=== PATIENT | female | born 1995 | race Caucasian/White ===

== ENCOUNTER 2018-11-04 14:57 | Emergency (ER) | payer OTHER ==
[2018-11-04 15:09] VITALS: BP 139/94
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
--- NOTE | 2018-11-04 16:06 | XRAY Report ---
Reason: 4th finger injury at PIP, shield abd Procedure Date: 11/04/2018 Accession Number: [id number] / [id number] Procedure: XR - Finger(s) LT CPT Code: FULL RESULT: EXAM: LEFT FOURTH DIGIT RADIOGRAPHY EXAM DATE: 11/04/2018 03:28 PM. CLINICAL HISTORY: 4th finger injury at PIP, shield abd. COMPARISON: None. TECHNIQUE: 3 views. FINDINGS: Bones: Possible fractured dorsal aspect middle phalanx base at the PIP joint Joints: Normal. No subluxations. Soft Tissues: Soft tissue swelling. IMPRESSION: Possible fracture dorsal base of middle phalanx seen on lateral view [facility]
[2018-11-04 16:11] LABS: HCG UR QUAL NEGATIVE
== END 2018-11-04 16:55 | disposition home or self-care (01) ==
LOC: ED 14:57
DX: S62.655A Nondisplaced fracture of middle phalanx of left ring finger, initial encounter for closed fracture (principal); W22.09XA Striking against other stationary object, initial encounter; Y92.009 Unspecified place in unspecified non-institutional (private) residence as the place of occurrence of the external cause; R03.0 Elevated blood-pressure reading, without diagnosis of hypertension
CPT/HCPCS: 73140; 81025; 99283

== ENCOUNTER 2019-01-11 10:50 | Emergency (ER) | payer OTHER ==
[2019-01-11 10:54] VITALS: BP 135/89
[2019-01-11] MEDS ORDERED: ACETAMINOPHEN 325 MG TABLET PO STA (11:10)
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
== END 2019-01-11 11:17 | disposition home or self-care (01) ==
LOC: ED 10:50
DX: S09.90XA Unspecified injury of head, initial encounter (principal); Y04.2XXA Assault by strike against or bumped into by another person, initial encounter
CPT/HCPCS: 99283; A9270

== ENCOUNTER 2019-03-11 17:32 | Emergency (ER) | payer SELFPAY ==
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
[2019-03-11 18:51] VITALS: BP 115/80
== END 2019-03-11 18:47 | disposition home or self-care (01) ==
LOC: ED 17:32
DX: S06.0X0A Concussion without loss of consciousness, initial encounter (principal); W21.01XA Struck by football, initial encounter
CPT/HCPCS: 99283

== ENCOUNTER 2019-05-09 18:53 | Emergency (ER) | payer MEDICAID, OTHER ==
[2019-05-09] MEDS ORDERED: MELOXICAM 7.5 MG TABLET PO STA (20:52)
[2019-05-09] MEDS ORDERED: CYCLOBENZAPRINE 10 MG TABLET PO STA (20:52)
--- NOTE | 2019-05-09 20:55 | ED Physician Documentation ---
History of Present Illness - Stated complaint Stated Complaint: NECK PX/FEVER - Chief complaint Chief Complaint: Back Pain - History obtained from History obtained from: Patient, Family - History of Present Illness Timing: How many days ago (3) Pain level max: 6 Pain level now: 4 - Additonal information Additional information: states woke up with pain to the R neck 3 days ago, stretched gently at the time and felt better the next day. Today worsened again. Worse with movement and better with rest. Saw her doctor today who was concerned about potential meningitis and sent the patient here for evaluation. T-max of 99.2. Review of Systems Constitutional: denies: Fever, Chills Ears: denies: Ear pain GI: denies: Nausea, Vomiting, Diarrhea : denies: Dysuria, Frequency, Hesitancy, Now EGA Skin: denies: Rash Musculoskeletal: denies: Back pain Neurologic: denies: Focal weakness, Numbness PD PAST MEDICAL HISTORY - Past Medical History Past Medical History: Yes Psych: Panic attacks - Past Surgical History Past Surgical History: No - Present Medications Home Medications: Ambulatory Orders Medication Instructions Recorded Confirmed Cyclobenzaprine [Flexeril] 10 mg PO TID PRN #20 tablet 05/09/19 Meloxicam [Mobic] 15 mg PO DAILY PRN #20 tablet 05/09/19 - Allergies Allergies/Adverse Reactions: Allergies Allergy/AdvReac Type Severity Reaction Status Date / Time amoxicillin Allergy Rash Verified 05/09/19 19:10 - Social History Does the pt smoke?: No Smoking Status: Former smoker Does the pt drink ETOH?: Yes Does the pt have substance abuse?: No Substance Use and Type: Marijuana - Immunizations Immunizations are current?: Yes PD ED PE NORMAL - Vitals Vital signs reviewed: Yes - General General: Alert and oriented X 3, No acute distress - HEENT HEENT: Atraumatic, PERRL, Ears normal, Moist mucous membranes, Pharynx benign - Neck Neck: Supple, no meningeal sign, No bony TTP, Other (Paraspinal spasm bilateral paracervical. Negative Kernig and Brudzinski signs. Has pain with rotation of the head. Able to fully extend and flex the head without pain.) - Cardiac Cardiac: RRR, Strong equal pulses - Respiratory Respiratory: No respiratory distress, Clear bilaterally - Abdomen Abdomen: Soft, Non tender, Non distended - Back Back: No CVA TTP, No spinal TTP - Derm Derm: Warm and dry - Neuro Neuro: Alert and oriented X 3 - Psych Psych: Normal mood, Normal affect Results - Vitals Vitals: Oxygen O2 Source Room air PD MEDICAL DECISION MAKING - ED course Complexity details: considered differential, d/w patient, d/w family ED course: 24-year-old female that appears to be in neck muscle spasm. Likely secondary to how she slept. Encourage gentle stretching. Will place on medications for home. There is no evidence of meningitis at this time. She will follow-up with her PCP for further care. Patient counseled regarding signs and symptoms for which I believe and urgent re-evaluation would be necessary. Patient with good understanding of and agreement to plan and is comfortable going home at this time Goc Departure - Departure Disposition: 01 Home, Self Care Clinical Impression: Neck muscle spasm Condition: Good Instructions: ED Spasm Neck No Injury Follow-Up: Radha Cosme MD [Primary Care Provider] - Within 1 week Prescriptions: Cyclobenzaprine [Flexeril] 10 mg PO TID PRN #20 tablet PRN Reason: Spasms Meloxicam [Mobic] 15 mg PO DAILY PRN #20 tablet PRN Reason: pain Comments: Return if you worsen. Follow-up with your doctor for further care. Continue to gently stretch your neck as this will help to loosen the muscles. Do not drive or operate heavy machinery while taking the Flexeril. Discharge Date/Time: 05/09/19 21:01
[2019-05-09 21:02] VITALS: BP 103/70
== END 2019-05-09 21:01 | disposition home or self-care (01) ==
LOC: ED 18:53
DX: M62.838 Other muscle spasm (principal); M54.2 Cervicalgia; Z87.891 Personal history of nicotine dependence
CPT/HCPCS: 99282; 99284; A9270